=== PATIENT | female | born 1970 | race Caucasian/White ===

== ENCOUNTER → 2019-01-21 | Outpatient (CLI) | payer BC, SELFPAY ==
[~2019-01-21] MED LIST: ANTIBIOTIC; BISA5EC PO; MUPIROCIN1 GM TP; OXYACE7.5T PO; PHENTERAMINE; Percocet 5-3251 EACH PO
== END | disposition home or self-care (01) ==
LOC: LAB SHORT 11:14 → PLD 11:14
DX: D48.5 Neoplasm of uncertain behavior of skin (principal)
CPT/HCPCS: 88305